=== PATIENT | male | born 1985 | race American Indian/Alaskan Native ===

== ENCOUNTER 2023-07-06 14:36 | Emergency (ER) | payer MEDICAID ==
[2023-07-06] MEDS: Sodium Chloride 0.9% 1,000 ML IV STA (15:53)
[2023-07-06] MEDS: Ondansetron 4 MG/2 ML SDV IVPUSH ONE ×2 (15:54→17:26)
[2023-07-06] MEDS: LORazepam 2 MG/ML SDV IVPUSH ONE ×2 (15:54→20:25)
[2023-07-06 16:11] LABS: HEMATOCRIT 39.8 % (42.0-52.0); HEMOGLOBIN 13.5 gm/dl (14.0-18.0); MEAN CORPUSCULAR HGB CONC 33.9 g/dl (32.0-36.0); MEAN CORPUSCULAR VOLUME 88.4 fl (83.0-99.0); MEAN PLATELET VOLUME 8.9 fl (9.4-12.4); PLATELET COUNT,PLT 238 K/mm3 (150-400); WHITE BLOOD CELL COUNT,WBC 7.06 K/mm3 (3.9-11.3)
[2023-07-06 16:13] LABS: A/G RATIO 1.1 (1-2); ALBUMIN 3.3 g/dl (3.4-5.0); ANION GAP 13.8 (5-15); BILIRUBIN TOTAL 0.2 mg/dL (0.2-1.0); BUN/CREATININE RATIO 5.6 (14-18); CALCIUM 7.8 mg/dL (8.5-10.1); CREATININE 0.9 mg/dL (0.7-1.3); EST CRCL DRUG DOSING (CG) 122.15 mL/min; ETHANOL BLOOD MEDICAL 0.16 gm% (0.00); POTASSIUM,K 3.8 mEq/L (3.5-5.1); PROTEIN TOTAL,TP 6.2 g/dl (6.4-8.2); TSH 0.351 uIU/mL (0.358-3.74)
[2023-07-06 16:56] LABS: BAND PERCENT MAN 1 % (0-10); BASOPHILS PERCENT MAN 0 (0.2-1.2); EOSINOPHILS PERCENT MAN 1 % (0.8-7.0); LYMPHOCYTES % ATYPICAL MANUAL 5 %; LYMPHOCYTES PERCENT MAN 19 % (20-40); MONOCYTES PERCENT MAN 4 % (2-10)
[2023-07-06 16:57] LABS: PLATELET COUNT ESTIMATE ADEQUATE
[2023-07-06 16:58] LABS: BARBITURATE SCREEN,URINE NEGATIVE (CUTOFF=200); BENZODIAZEPINES SCREEN,URINE PRESUMPTIVE POSITIVE (CUTOFF=150); BUPRENORPHINE SCREEN,URINE NEGATIVE (CUTOFF=10); METHADONE SCREEN, URINE NEGATIVE (CUT0FF=200); METHAMPHETAMINES SCREEN, URINE NEGATIVE (CUTOFF=500); OXYCODONE SCREEN,URINE NEGATIVE (CUT0FF=100); THC SCREEN,URINE 20 NG/ML PRESUMPTIVE POSITIVE (CUTOFF=50)
[2023-07-06 16:59] LABS: AMPHETAMINES SCREEN, URINE NEGATIVE (CUTOFF=500)
[2023-07-06] MEDS: LORazepam 1 MG Tab PO ONE (19:44)
[2023-07-06] MEDS ORDERED: chlordiazePOXIDE 25 MG Cap PO ONE (20:20)
== END 2023-07-06 20:33 | disposition other institution (70) ==
LOC: JD.ED 14:36
DX: F10.10 Alcohol abuse, uncomplicated (principal); Z79.899 Other long term (current) drug therapy; F17.210 Nicotine dependence, cigarettes, uncomplicated; Y90.0 Blood alcohol level of less than 20 mg/100 ml
CPT/HCPCS: 36415; 80053; 80143; 80179; 80306; 80307; 84443; 85007; 85027; 96361; 96374; 96375; 96376; 99283; A9270; J2060; J2405; J7030; 99284